=== PATIENT | female | born 1990 | race Caucasian/White ===

== ENCOUNTER 2019-01-02 18:16 | Emergency (ER) | payer SELFPAY ==
[~2019-01-02] VITALS: Ht 165.1 cm; Wt 56.8 kg
[~2019-01-02 18:16] MED LIST: CHLO25CA9 PO
[2019-01-02 18:30] VITALS: Ht 165.1 cm; Wt 56.8 kg
[2019-01-02] MEDS ORDERED: LORAZEPAM 2 MG INJ IM ONE (19:00)
[2019-01-02] MEDS ORDERED: HALOPERIDOL 5 MG INJ IM ONE (19:00)
[2019-01-02] MEDS ORDERED: DIPHENHYDRAMINE 50 MG INJ IM ONE (19:00)
--- NOTE | 2019-01-02 19:58 | ERD ---
ER Documentation Chief Complaint Chief Complaint HPI Patient was brought in by [employer] and placed on a 5150 hold secondary to bizarre be havior. Patient cannot offer any relevant history. Placed on 5150 by [employer]. Patient required sedation with Haldol Ativan and Benadryl upon arrival. ROS All systems reviewed and are negative except as per history of present illness. Allergies Allergies: Coded Allergies: Unknown: Unable to obtain (Unverified , 01/02/19) Physical Exam Vitals Vital Signs Date Temp Pulse Resp B/P (MAP) Pulse Ox O2 O2 Flow FiO2 Time Delivery Rate 01/03/19 62 18 97/53 (68) 97 13:35 01/03/19 80 18 94/58 (70) 95 Room Air 07:37 01/02/19 84 16 95/60 (72) 95 Room Air 22:38 01/02/19 90 18 92/57 (69) 99 Room Air 20:58 01/02/19 98.4 115 18 115/82 99 Room Air 19:12 (93) 01/02/19 98.4 115 18 115/82 99 18:30 (93) Physical Exam Const: No acute distress Head: Atraumatic Eyes: Normal Conjunctiva ENT: Normal External Ears, Nose and Mouth. Neck: Full range of motion. No meningismus. Resp: Clear to auscultation bilaterally Cardio: Regular rate and rhythm, no murmurs Abd: Soft, non tender, non distended. Normal bowel sounds Skin: No petechiae or rashes Back: No midline or flank tenderness Ext: No cyanosis, or edema Neur: Awake and alert Psych: Normal Mood and Affect Result Diagram: 01/02/19183301/02/19 183 Results 24 hrs Laboratory Tests Test 01/02/19 18:34 01/02/19 20:06 White Blood Count 8.1 10^3/ul Red Blood Count 4.62 10^6/ul Hemoglobin 13.9 g/dl Hematocrit 43.4 % Mean Corpuscular Volume 93.9 fl Mean Corpuscular Hemoglobin 30.1 pg Mean Corpuscular Hemoglobin Concent 32.0 g/dl Red Cell Distribution Width 14.5 % Platelet Count 363 10^3/UL Mean Platelet Volume 9.8 fl Immature Granulocytes % 0.100 % Neutrophils % 41.8 % Lymphocytes % 47.0 % Monocytes % 7.4 % Eosinophils % 3.1 % Basophils % 0.6 % Nucleated Red Blood Cells % 0.0 /100WBC Immature Granulocytes # 0.010 10^3/ul Neutrophils # 3.4 10^3/ul Lymphocytes # 3.8 10^3/ul Monocytes # 0.6 10^3/ul Eosinophils # 0.3 10^3/ul Basophils # 0.1 10^3/ul Nucleated Red Blood Cells # 0.0 10^3/ul Sodium Level 141 mmol/L Potassium Level 4.0 mmol/L Chloride Level 104 mmol/L Carbon Dioxide Level 23 mmol/L Anion Gap 14 Blood Urea Nitrogen 16 mg/dl Creatinine 0.64 mg/dl Est Glomerular Filtrat Rate mL/min > 60 mL/min Glucose Level 83 mg/dl Calcium Level 10.5 mg/dl Total Bilirubin 0.4 mg/dl Direct Bilirubin 0.00 mg/dl Indirect Bilirubin 0.4 mg/dl Aspartate Amino Transf (AST/SGOT) 31 IU/L Alanine Aminotransferase (ALT/SGPT) 13 IU/L Alkaline Phosphatase 74 IU/L Total Protein 9.7 g/dl Albumin 5.4 g/dl Globulin 4.30 g/dl Albumin/Globulin Ratio 1.25 Salicylates Level < 1.0 mg/dl Acetaminophen Level < 10.0 ug/ml Ethyl Alcohol Level < 10.0 mg/dl Urine Color YELLOW Urine Clarity CLOUDY Urine pH 5.0 Urine Specific [place] 1.024 Urine Ketones NEGATIVE mg/dL Urine Nitrite NEGATIVE mg/dL Urine Bilirubin NEGATIVE mg/dL Urine Urobilinogen NEGATIVE mg/dL Urine Leukocyte Esterase 1+ Candis/ul Urine Microscopic RBC 1 /HPF Urine Microscopic WBC 16 /HPF Urine Squamous Epithelial Cells MODERATE /HPF Urine Bacteria FEW /HPF Urine Mucus FEW /HPF Urine Hemoglobin NEGATIVE mg/dL Urine Glucose NEGATIVE mg/dL Urine Total Protein NEGATIVE mg/dl Urine Opiates Screen Positive Urine Barbiturates Negative Urine Amphetamines Screen POSITIVE Urine Benzodiazepines Screen Negative Urine Cocaine Screen Positive Urine Cannabinoids Negative Current Medications Medications Dose Sig/Liliam Start Time Status Last (Trade) Ordered Route PRN Stop Time Admin Dose Reason Admin Haloperidol 5 mg ONCE ONCE 01/02/19 DC 01/02/19 (Haldol) IM 19:00 19:02 01/02/19 19:01 Lorazepam 2 mg ONCE ONCE 01/02/19 DC 01/02/19 (Ativan) IM 19:00 19:02 01/02/19 19:01 50 mg ONCE ONCE 01/02/19 DC 01/02/19 Diphenhydrami IM 19:00 19:02 ne HCl 01/02/19 19:01 (Benadryl) Procedures/MDM Patient's behavioral symptoms have stabilized while in the department. Patient is medically cleared and appropriate for psychiatric evaluation and work up. No e/o neurologic, toxic, infectious, or metabolic cause. Currently pending p lacement Patient was evaluated by psych and they are cleared to be discharged home. The aids social worker will come to give her resources for follow-up Departure Diagnosis: Primary Impression: Psychological disorder Condition: Stable JUNAID MCQUEEN January 02, 2019 19:58 QUE LIM DO January 03, 2019 13:53
--- NOTE | 2019-01-03 13:36 | PSY ---
Date/Time of Note Date/Time of Note DATE: 01/03/19 TIME: 13:30 Psychiatric Subjective Eval Consent Pt consented to telemedicine: Yes Subjective Evaluation Patient location: emergency Chief Complaint: BIB RA for agitation, continuous yelling, throwing items at passerby History of present illness 28 yo homeless female SEK[facility] LE due to agitation, yelling , throwing thngs. Pt had to be medicated in ED de to agitation. Pt is drowsy, but abusable, irritable; she says she needs to go to psychiatric hospital because "she is hungry". Pt denies drugs use - UDS + amph, cocaine. Pt denies SI or HI, denies AH or VH. Pt says she is on probation. Pt receives GR and food stamps. Off psych meds. Past psychiatric history prior inpt Hospitalization: yes Family History denies Medical history Problems Medical Problems: (1) Psychological disorder Status: Acute Allergies: Coded Allergies: Unknown: Unable to obtain (Unverified , 01/02/19) Substance Abuse Substance abuse history: Yes Prior substance abuse treatmen: Yes Social History Marital status: single DPA/Conservatorship: No Occupation/Alf: homeless Psychiatric Objective Eval Review of Systems: Review of Systems: Not Applicable Mental Status Examination: Appearance: Disheveled Eye Contact: Poor Psychomotor Activity: Normal Behavior: Guarded Speech: Clear AFFECT: Appropriate Mood: Irritable Though Process: Linear Thought Content: Normal Suicidal: No Homicidal: No On 72 hour hold: Yes Orientation: x3 Cognition: Drowsy Insight: Impared Judgement: Impared Laboratory Results Laboratory Tests Test 01/02/19 18:34 01/02/19 20:06 White Blood Count 8.1 10^3/ul Red Blood Count 4.62 10^6/ul Hemoglobin 13.9 g/dl Hematocrit 43.4 % Mean Corpuscular Volume 93.9 fl Mean Corpuscular Hemoglobin 30.1 pg Mean Corpuscular Hemoglobin Concent 32.0 g/dl Red Cell Distribution Width 14.5 % Platelet Count 363 10^3/UL Mean Platelet Volume 9.8 fl Immature Granulocytes % 0.100 % Neutrophils % 41.8 % Lymphocytes % 47.0 % Monocytes % 7.4 % Eosinophils % 3.1 % Basophils % 0.6 % Nucleated Red Blood Cells % 0.0 /100WBC Immature Granulocytes # 0.010 10^3/ul Neutrophils # 3.4 10^3/ul Lymphocytes # 3.8 10^3/ul Monocytes # 0.6 10^3/ul Eosinophils # 0.3 10^3/ul Basophils # 0.1 10^3/ul Nucleated Red Blood Cells # 0.0 10^3/ul Sodium Level 141 mmol/L Potassium Level 4.0 mmol/L Chloride Level 104 mmol/L Carbon Dioxide Level 23 mmol/L Anion Gap 14 Blood Urea Nitrogen 16 mg/dl Creatinine 0.64 mg/dl Est Glomerular Filtrat Rate mL/min > 60 mL/min Glucose Level 83 mg/dl Calcium Level 10.5 mg/dl Total Bilirubin 0.4 mg/dl Direct Bilirubin 0.00 mg/dl Indirect Bilirubin 0.4 mg/dl Aspartate Amino Transf (AST/SGOT) 31 IU/L Alanine Aminotransferase (ALT/SGPT) 13 IU/L Alkaline Phosphatase 74 IU/L Total Protein 9.7 g/dl Albumin 5.4 g/dl Globulin 4.30 g/dl Albumin/Globulin Ratio 1.25 Salicylates Level < 1.0 mg/dl Acetaminophen Level < 10.0 ug/ml Ethyl Alcohol Level < 10.0 mg/dl Urine Color YELLOW Urine Clarity CLOUDY Urine pH 5.0 Urine Specific [place] 1.024 Urine Ketones NEGATIVE mg/dL Urine Nitrite NEGATIVE mg/dL Urine Bilirubin NEGATIVE mg/dL Urine Urobilinogen NEGATIVE mg/dL Urine Leukocyte Esterase 1+ Candis/ul Urine Microscopic RBC 1 /HPF Urine Microscopic WBC 16 /HPF Urine Squamous Epithelial Cells MODERATE /HPF Urine Bacteria FEW /HPF Urine Mucus FEW /HPF Urine Hemoglobin NEGATIVE mg/dL Urine Glucose NEGATIVE mg/dL Urine Total Protein NEGATIVE mg/dl Urine Opiates Screen Positive Urine Barbiturates Negative Urine Amphetamines Screen POSITIVE Urine Benzodiazepines Screen Negative Urine Cocaine Screen Positive Urine Cannabinoids Negative Assessment and Plan Assessment/Diagnosis Diagnosis AMPHETAMINE INTOXICATION [facility]OS[facility] Recommendation/Plan Medication Management zyprexa 10 mg poqhs Multiple antipsychotics: Yes Discharge Disposition: Community (Other) Legal Status: Release involuntary hold Other please refer to a [facility]ci and CD treatment MIHIR CARRERO MD January 03, 2019 13:36
[2019-01-03 14:59] VITALS: BP 103/58; PULSE 68; RESP 20
== END 2019-01-03 15:27 | disposition home or self-care (01) ==
LOC: E/R 18:16 → EDBD 18:16 → E/R 01-03 15:27
DX: F29 Unspecified psychosis not due to a substance or known physiological condition (principal)
CPT/HCPCS: 80053; 80307; 81001; 85025; 96372; 99284; J1200; J1630; J2060

== ENCOUNTER 2019-05-17 09:59 | Emergency (ER) | payer OTHER ==
[~2019-05-17] VITALS: Ht 160 cm; Wt 54.6 kg
[2019-05-17 10:13] VITALS: BP 121/59; PULSE 100; RESP 18; Ht 160 cm; Wt 54.6 kg
[2019-05-17] MEDS ORDERED: CHLORDIAZEPOXIDE 25 MG CAP PO ONE (15:00)
[2019-05-17] MEDS ORDERED: LORAZEPAM 2 MG INJ IM ONE (15:00)
[2019-05-17] MEDS ORDERED: THIAMINE 100 MG TAB PO ONE (15:00)
[2019-05-17] MEDS ORDERED: FOLIC ACID 1 MG TAB PO ONE (15:00)
== END 2019-05-17 15:25 | disposition home or self-care (01) ==
LOC: E/R 09:59
DX: F10.230 Alcohol dependence with withdrawal, uncomplicated (principal)
CPT/HCPCS: 96372; J2060; Z7502; Z7610